=== PATIENT | male | born 1980 | race African-American/Black ===

== ENCOUNTER 2021-06-23 16:37 | Emergency (ER) | payer BC ==
[~2021-06-23] VITALS: Ht 175.3 cm; Wt 74.8 kg
[2021-06-23 18:38] LABS: BASOPHILS 0.6 % (0.0-2.0); HEMATOCRIT 43.5 % (42.0-52.0); HEMOGLOBIN 14.3 gm/dL (14.0-18.0); LYMPHOCYTES 16.9 % (24.0-44.0); MCH 28.8 pg (26.0-34.0); MCHC 32.8 g/dL (28.0-37.0); MCV 87.8 fL (80.0-100.0); MONOCYTES 8.8 % (1.0-8.0); PLATELET COUNT 247 thou/uL (150-400); POLYS 73.7 % (36.0-66.0); RBC 4.95 mil/uL (4.50-6.00); WBC 8.1 thou/uL (4.0-11.0)
[2021-06-23 18:44] LABS: CALCIUM 8.7 mg/dL (8.5-10.1); CREATININE 1.6 mg/dL (0.7-1.3)
[2021-06-23 18:51] LABS: ALBUMIN 3.7 g/dL (3.4-5.0); MAGNESIUM 2.2 mg/dL (1.8-2.4); TOTAL BILIRUBIN 0.3 mg/dL (0.2-1.0); TOTAL PROTEIN 7.2 g/dL (6.4-8.2)
[2021-06-23 20:09] VITALS: BP 111/70
[2021-06-23 20:17] LABS: URINE BILIRUBIN NEGATIVE (Negative); URINE BLOOD NEGATIVE (Negative); URINE CLARITY CLEAR; URINE COLOR YELLOW; URINE GLUCOSE-RANDOM* NEGATIVE (Negative); URINE KETONES NEGATIVE (Negative); URINE LEUKOCYTES-REFLEX NEGATIVE (Negative); URINE NITRITE-REFLEX NEGATIVE (Negative); URINE PROTEIN (DIPSTICK) TRACE (Negative); URINE UROBILINOGEN 0.2 E.U./dl (0.2-1.0)
--- NOTE | 2021-06-24 07:56 | EKG ---
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: : 1980 Requested By: Mandy Craig Order Number: [id number] MD: Lokesh Hernandez Measurements Intervals [place] Rate: 53 P: 43 MO: 128 QRS: 48 QRSD: 79 T: 22 QT: 377 QTc: 354 Interpretive Statements Sinus rhythm ST elev, probable normal early repol pattern Baseline wander in lead(s) V1 No previous ECG available for comparison Electronically Signed On 06-24-2021 7:56:14 CHIEF BUSINESS DEVELOPMENT OFFICER by Lokesh Hernandez [email or web address] <ELECTRONICALLY SIGNED> By: Lokesh Hernandez MD, [facility] 06/24/21 [id number] Lokesh Hernandez MD, FACC /EPI
== END 2021-06-23 21:32 | disposition home or self-care (01) ==
LOC: ER 16:37
PROVIDERS: Nurse Practitioner
DX: U07.1 COVID-19 (principal); R55 Syncope and collapse; J10.1 Influenza due to other identified influenza virus with other respiratory manifestations; Z88.5 Allergy status to narcotic agent; Z90.49 Acquired absence of other specified parts of digestive tract